=== PATIENT | female | born 1945 | race Two or more races ===

== ENCOUNTER 2019-06-25 06:00 | Day surgery (SDC) | payer OTHER | END 2019-06-25 10:50 | disposition home or self-care (01) | LOC: AMB-ENDOS 06:00 → EDBD 10:15 → ADM 10:15 → AMB-ENDOS 10:50 | DX: D12.3 Benign neoplasm of transverse colon (principal); K57.30 Diverticulosis of large intestine without perforation or abscess without bleeding ==

== ENCOUNTER 2020-03-09 11:45 | Inpatient (IN) | payer OTHER ==
[~2020-03-09] VITALS: Ht 157.5 cm; Wt 59.0 kg
[2020-03-09] MEDS ORDERED: METFORMIN HCL500 M3 PO (18:21)
[2020-03-09] MEDS ORDERED: COZAAR50 MG PO (18:21)
[2020-03-09] MEDS ORDERED: ADULT LOW DOSE81 M1 PO (18:21)
[2020-03-09] MEDS ORDERED: LIPITOR20 MG PO (18:22)
[2020-03-19] MEDS ORDERED: HYOSCYAMINE0.125 M1 SL (08:56)
[2020-03-19] MEDS ORDERED: OXYC1TAB9 PO (08:57)
[2020-03-19] MEDS ORDERED: INTESTINEX680 M1 PO (08:57)
[2020-03-19] MEDS ORDERED: DEXILANT30 MG PO (08:57)
== END 2020-03-19 09:23 | disposition home or self-care (01) | DRG 330 ==
LOC: O/R 03-16 07:25 → SURH 03-16 07:25
PROVIDERS: ADMIT Surgery; ATTEND Surgery
PROC: 07TB4ZZ Resection of Mesenteric Lymphatic, Percutaneous Endoscopic Approach (ICD-10-PCS; 2020-03-16)
PROC: 0DBU4ZZ Excision of Omentum, Percutaneous Endoscopic Approach (ICD-10-PCS; 2020-03-16)
PROC: 0DQL4ZZ Repair Transverse Colon, Percutaneous Endoscopic Approach (ICD-10-PCS; 2020-03-16)
PROC: 0WPF4JZ Removal of Synthetic Substitute from Abdominal Wall, Percutaneous Endoscopic Approach (ICD-10-PCS; 2020-03-16)
PROC: 0DTF4ZZ Resection of Right Large Intestine, Percutaneous Endoscopic Approach (ICD-10-PCS; principal; 2020-03-16 12:00)
DX: D12.2 Benign neoplasm of ascending colon (principal); K91.71 Accidental puncture and laceration of a digestive system organ or structure during a digestive system procedure; K66.0 Peritoneal adhesions (postprocedural) (postinfection); K43.2 Incisional hernia without obstruction or gangrene; D36.0 Benign neoplasm of lymph nodes; E11.9 Type 2 diabetes mellitus without complications; I10 Essential (primary) hypertension